=== PATIENT | female | born 1960 | race Caucasian/White ===

== ENCOUNTER 2020-12-06 00:30 | Emergency (ER) | payer BC ==
[~2020-12-06] VITALS: Ht 180.3 cm; Wt 81.8 kg
[2020-12-06] MEDS ORDERED: NORCO 325 MG-51 TAB PO (02:47)
[2020-12-06 02:59] VITALS: BP 134/79; PULSE 81; TEMP 98.1
== END 2020-12-06 02:59 | disposition home or self-care (01) ==
LOC: COL.ER 00:30
DX: S52.502A Unspecified fracture of the lower end of left radius, initial encounter for closed fracture (principal); S01.511A Laceration without foreign body of lip, initial encounter; W01.198A Fall on same level from slipping, tripping and stumbling with subsequent striking against other object, initial encounter
CPT/HCPCS: J2405; J3010